=== PATIENT | female | born 1930 | race Caucasian/White ===

== ENCOUNTER 2016-11-12 09:15 | Emergency (ER) | payer MEDICARE, OTHER ==
[2016-11-12] MEDS ORDERED: 0.9 % SODIUM CHLORIDE 500 ML IV ONE (09:30)
[2016-11-12 09:38] LABS: BASOPHILS % 0.3 (0.0-1.5); EOSINOPHILS % 5.5 % (0.0-6.8); LYMPHOCYTES # 1.9 # k/uL (0.6-4.0); MEAN CORPUSCULAR HEMOGLOBIN 29.8 pg (28.0-34.0); MONOCYTES # 0.3 # k/uL (0.0-0.9); MONOCYTES % 3.7 % (0.0-11.0); NEUTROPHILS # 4.6 # k/uL (1.4-7.7)
[2016-11-12 09:39] LABS: APPEARANCE,URINE Clear (CLEAR); COLOR,URINE Yellow (YELLOW); OCCULT BLOOD,URINE Negative (NEGATIVE); UROBILINOGEN URINE 0.2 Eu (0.2-1.0)
--- NOTE | 2016-11-12 09:39 | ED Physician Documentation ---
General Adult - HISTORIAN Historian: patient, paramedics - HPI Stated Complaint: confusion Chief Complaint: General Adult Onset: hours Timing: still present Severity: moderate Further Comments: yes (Pt is an 85 yo female with dementia, who was difficult for her family to awaken this am. Pt was alert when EMT's arrived and walked to ambulance. In ER family stated that pt was near her baseline mental status, but seemed a little slower than usual.) - ROS CONST: other (pt with dementia cannot give reliable ROS) - PAST HX Past History: other (depression, dementia) Surgeries/Procedures: cholecystectomy Allergies/Adverse Reactions: Allergies Allergy/AdvReac Type Severity Reaction Status Date / Time cefaclor [From Ceclor] Allergy Unknown Verified 11/12/16 09:54 cephalexin [Cephalexin] Allergy Unknown Verified 11/12/16 09:54 Home Medications: Ambulatory Orders Medication Instructions Recorded Quetiapine Fumarate [Seroquel] 25 mg PO BID u2 11/19/14 Sertraline HCl [Zoloft] 25 mg PO DAILY u2 01/09/16 Dextromethorphan HBr/Quinidine 1 each PO BID 11/12/16 [Nuedexta] - SOCIAL HX Smoking History: quit greater than 1 year - FAMILY HX Family History: No - REVIEWED ASSESSMENTS Nursing Assessment Reviewed: Yes Vitals Reviewed: Yes Progress - Progress Progress: 1 L NS pt's mental status at or near baseline per family probable slow mental status decline c/w dementia, labs wnl. ED Results Lab/Radiology - Orders Orders: ED Orders Category Date Time Status Place Saline Lock/IV Now Care 11/12/16 09:30 Active BNP [NT-proBNP] Stat Lab 11/12/16 09:30 Received CBC/PLATELET/DIFF Routine Lab 11/12/16 09:30 Received CMP Routine Lab 11/12/16 09:30 Received URINALYSIS Routine Lab 11/12/16 09:30 Received 0.9 % Sodium Chloride [Normal Saline] 500 ml Med 11/12/16 09:30 Active IV NOW General Adult Physical Exam - PHYSICAL EXAM GENERAL APPEARANCE: mild distress EENT: eye inspection normal, pharynx normal NECK: normal inspection, supple RESPIRATORY: no resp distress, chest non-tender, breath sounds normal CVS: reg rate & rhythm, heart sounds normal ABDOMEN: soft, no organomegaly, normal bowel sounds BACK: normal inspection, no CVA tenderness SKIN: warm/dry, normal color EXTREMITIES: non-tender, normal range of motion NEURO: motor nml, sensation nml, disoriented (hx dementia) Discharge Clincal Impression: Transient change in mental status Referrals: Lobo Bhatt MD [Primary Care Provider] - Home Medications: Ambulatory Orders Quetiapine Fumarate [Seroquel] 25 mg PO BID u2 11/19/14 Sertraline HCl [Zoloft] 25 mg PO DAILY u2 01/09/16 Dextromethorphan HBr/Quinidine [Nuedexta] 1 each PO BID 11/12/16 Condition: Stable Disposition: 01 HOME, SELF-CARE Decision to Admit: NO Decision Time: 11:21
[2016-11-12 10:02] LABS: eGFR (African) > 60; eGFR (Non-African) > 60
[2016-11-12 11:36] VITALS: BP 121/63
== END 2016-11-12 11:23 | disposition home or self-care (01) ==
LOC: ED 09:15
DX: R40.4 Transient alteration of awareness (principal)
CPT/HCPCS: 80053; 81002; 83880; 85025; J7060; 51701; 99283

== ENCOUNTER 2017-02-28 20:04 | Emergency (ER) | payer MEDICARE, OTHER ==
--- NOTE | 2017-02-28 20:53 | ED Physician Documentation ---
Facial/Scalp Injury - HISTORIAN Historian: patient (poor historian 2/2 medical condition), child (daughter) - HPI Stated Complaint: laceration face Chief Complaint: Facial Injury Additional Information: Fell onto face from seated position on couch at home. No LOC. Occurred 30 minutes prior to arrival. Lives with daughter. No clotting inhibitors. - ROS CONST: no problems - PAST HX Past History: other (dementia, HLD) - SOCIAL HX Smoking History: non-smoker - FAMILY HX Family History: No - VITAL SIGNS Vital Signs: Vital Signs Temp Pulse Resp BP Pulse Ox 121/63 11/12/16 11:35 - REVIEWED ASSESSMENT Nursing Assessment Reviewed: Yes Vitals Reviewed: Yes Progress - Progress Progress: Computed tomography of the head without contrast History: Fall with facial and head lacerations Findings: Transverse brain sections are obtained without contrast revealing lens replacements moderate global brain atrophy, and intact ngo white differentiation. There is no intracranial hemorrhage. Mucosal thickening and fluid are observed in ethmoid and maxillary sinuses. The skull is intact. Impression: 1. Brain atrophy without intracranial hemorrhage or skull fracture. 2. Ethmoid and maxillary sinusitis. Electronically signed on February 28, 2017 9:56:12 PM CDT by: Ezra Cui CT maxillofacial without contrast History: Left orbit and lip injury after fall Findings: Transverse mandible and facial bones sections are obtained without contrast revealing mucosal thickening in maxillary, ethmoid, and left sphenoid sinuses. Maxillary sinus fluid is observed. The mandible and facial bones are intact. Multilevel cervical spondylosis is partially visualized. Lens replacements have been performed. Minimal left preseptal periorbital contusion is present. Brain atrophy is noted. A left frontal scalp laceration and contusion are observed. Impression: 1. Facial contusions without fracture. 2. Acute and chronic sinusitis. 3. Cervical spondylosis. Electronically signed on February 28, 2017 9:58:09 PM CDT by: Ezra Cui Laceration infiltrated with 1.5 ml 0.5% bupivacaine. Pt became quite upset. Wound cleaned with chlorhexadine and saline. Closed with benzoing, steri strips. Extra steri strips sent home with daughter. ED Results Lab/Radiology - Orders Orders: ED Orders Category Date Time Status CT BRAIN W/O CONTRAST Stat Exams 02/28/[address] MAXILLOFACIAL W/O DYE Stat Exams 02/28/17 Ordered Facial Injury Physical Exam - Physical Exam General Appearance: moderate distress (angry that she has blood on her clothes and forehead and her family has "deserted" her) Head: trauma (swelling above left eyebrow with 2 cm lac, linear, sub q, no active bleeding. Bruising right malar area) Neck: non-tender, painless ROM Eye: lids nml, conjunctivae nml ENT: nml external exam, no injury to teeth, other (slight swelling left lower lip, left upper lip) Neuro/Psych: CN's nml as tested, sensation nml, motor nml Respiratory: breath sounds nml, heart sounds nml CVS: reg. rate & rhythm, heart sounds nml Skin: intact (except as above), warm Extremities: nml ROM (hips, legs) Discharge Clincal Impression: Facial laceration Referrals: Lobo Bhatt MD [Primary Care Provider] - 2 Days Home Medications: Ambulatory Orders Sertraline HCl [Zoloft] 25 mg PO DAILY u2 01/09/16 Quetiapine Fumarate 25 mg PO TID u2 01/18/17 Dextromethorphan HBr/Quinidine [Nuedexta] 1 tab PO DAILY 02/28/17 Condition: Good Disposition: 01 HOME, SELF-CARE Decision to Admit: NO Decision Time: 22:27
[2017-02-28] MEDS ORDERED: BUPIVACAINE HCL/PF 5 MG/ML 10ML VIAL IV ONE (20:59)
[2017-02-28] MEDS ORDERED: BUPIVACAINE HCL/PF 5 MG/ML 10ML VIAL IJ ONE (22:00)
[2017-02-28 22:32] VITALS: BP 122/59
--- NOTE | 2017-03-01 00:15 | Diagnostic Imaging Report ---
RACIEL DAMICO~ [facility] [address] [facility] [address] [place] [address]. [id number] ~ ~ ~ ~ Report Submission Date: February 28, 2017 9:56:12 PM CDT Patient ~ Study Name: TOSHA SAUCEDO ~ Date: February 28, 2017 9:25:51 PM CDT ~ Modality Type: CT\SR Gender: F ~ Description: CT BRAIN W/O CONTRAST : 28 ~ Institution: [facility] Physician: RACIEL DAMICO ~ ~ ~ ~ Computed tomography of the head without contrast History: Fall with facial and head lacerations Findings: Transverse brain sections are obtained without contrast revealing lens replacements moderate global brain atrophy, and intact ngo white differentiation. There is no intracranial hemorrhage. Mucosal thickening and fluid are observed in ethmoid and maxillary sinuses. The skull is intact. Impression: 1. Brain atrophy without intracranial hemorrhage or skull fracture. 2. Ethmoid and maxillary sinusitis. ~ Electronically signed on February 28, 2017 9:56:12 PM CDT by: Ezra COLLIER
--- NOTE | 2017-03-01 00:16 | Diagnostic Imaging Report ---
RACIEL DAMICO~ [facility] [address] [facility] [address] [place], [place]. [address] ~ ~ ~ ~ Report Submission Date: February 28, 2017 9:58:09 PM CDT Patient ~ Study Name: TOSHA SAUCEDO ~ Date: February 28, 2017 9:30:47 PM CDT ~ Modality Type: CT\SR Gender: F ~ Description: CT MAXILLOFACIAL W/O D : 29 ~ Institution: [facility] Physician: RACIEL DAMICO ~ ~ ~ ~ CT maxillofacial without contrast History: Left orbit and lip injury after fall Findings: Transverse mandible and facial bones sections are obtained without contrast revealing mucosal thickening in maxillary, ethmoid, and left sphenoid sinuses. Maxillary sinus fluid is observed. The mandible and facial bones are intact. Multilevel cervical spondylosis is partially visualized. Lens replacements have been performed. Minimal left preseptal periorbital contusion is present. Brain atrophy is noted. A left frontal scalp laceration and contusion are observed. Impression: 1. Facial contusions without fracture. 2. Acute and chronic sinusitis. 3. Cervical spondylosis. ~ Electronically signed on February 28, 2017 9:58:09 PM CDT by: Ezra COLLIER
== END 2017-02-28 22:30 | disposition home or self-care (01) ==
LOC: ED 20:04
DX: S01.112A Laceration without foreign body of left eyelid and periocular area, initial encounter (principal); W08.XXXA Fall from other furniture, initial encounter; Z91.81 History of falling; Y93.9 Activity, unspecified; Y99.9 Unspecified external cause status
CPT/HCPCS: 70450; 70486; J3490; 90471; 99283

== ENCOUNTER 2018-01-21 10:01 | Emergency (ER) | payer MEDICARE, OTHER ==
--- NOTE | 2018-01-21 10:19 | ED Physician Documentation ---
General Adult - HISTORIAN Historian: patient ([place]) - [facility] Chief Complaint: General Adult (possible aspiration) Additional Information: Nursing staff at [facility] concerned that the patient may have aspirated. This AM while eating patient started to have what appeared to be some SOB. States that she was crying, appeared to be in pain but could not tell them what was going on. She did have some mild coughing. VS remained stable. No previous history of aspiration or CAD. Patient transported in stable condition by EMS for evaluation. Onset: hours Timing: better Severity: moderate - ROS CONST: no problems. denies: fever, chills CVS/RESP: shortness of breath GI/: denies: vomiting, nausea, diarrhea, black stools - PAST HX Past History: other (dementia, hypercholesterolemia) Surgeries/Procedures: cholecystectomy, other (cataract extraction) Allergies/Adverse Reactions: Allergies Allergy/AdvReac Type Severity Reaction Status Date / Time cefaclor [From Ceclor] Allergy Unknown Verified 01/21/18 10:17 cephalexin [Cephalexin] Allergy Unknown Verified 01/21/18 10:17 Home Medications: Ambulatory Orders Medication Instructions Recorded Sertraline HCl [Zoloft] 25 mg PO DAILY u2 01/09/16 Dextromethorphan HBr/Quinidine 1 tab PO DAILY 02/28/17 [Nuedexta] Acetaminophen [Tylenol Extra 500 mg PO Q6 PRN 01/21/18 Strength] Ca/D3/Mag/Zinc/Johnathan/Henrique/Mgbor 1 tab PO BID 01/21/18 [Caltrate 600+D3+Min Chew Tab] Docusate Sodium [Colace] 100 mg PO DAILY 01/21/18 Ibuprofen [Advil] 400 mg PO BID 01/21/18 Polyethylene Glycol 3350 [Miralax] 17 gm PO DAILY 01/21/18 - SOCIAL HX Smoking History: non-smoker Alcohol Use: none Drug Use: none - FAMILY HX Family History: No (CAD brothers) - VITAL SIGNS Vital Signs: Vital Signs Temp Pulse Resp BP Pulse Ox 122/59 02/28/17 22:30 - REVIEWED ASSESSMENTS Nursing Assessment Reviewed: Yes Vitals Reviewed: Yes ED Results Lab/Radiology - Radiology Radiology Impressions: Examination: Portable chest History: POSSIBLE ASPIRATION (Hx) Comparison exam: None provided. Findings: Single view of the chest demonstrates a normal cardiac and mediastinal silhouette. Vascular calcifications involving the aortic arch. Lung ascencio without focal infiltrate. Flattening/blunting of the lung bases bilaterally. Articular degenerative changes. Impression: No acute appearing pulmonary process. General Adult Physical Exam - PHYSICAL EXAM GENERAL APPEARANCE: no distress (patient is resting quietly) EENT: pharynx normal NECK: normal inspection, thyroid normal, supple RESPIRATORY: no resp distress, chest non-tender, breath sounds normal. No: wheezes, rales, rhonchi CVS: reg rate & rhythm, heart sounds normal, equal pulses, no murmur, no gallop , PMI nml ABDOMEN: soft BACK: normal inspection, no CVA tenderness SKIN: warm/dry, normal color EXTREMITIES: non-tender, normal range of motion NEURO: motor nml, mood/affect nml, disoriented. No: oriented X3 (to person only ), cognition normal (confused) Discharge Clincal Impression: Chest pain Qualifiers: Chest pain type: unspecified Qualified Code(s): R07.9 - Chest pain, unspecified Referrals: Lobo Bhatt MD [Primary Care Provider] - 2 Days Additional Instructions: BUN and creatinine are elevated slightly from baseline, try to encourage fluids. Continue to monitor for aspiration. Condition: Stable Disposition: 01 HOME, SELF-CARE Decision to Admit: NO Date of Decison to Admit: 01/21/18 Decision Time: 11:47
[2018-01-21 10:23] VITALS: BP 133/53
[2018-01-21 10:34] LABS: BASOPHILS % 0.4 (0.0-1.5); EOSINOPHILS % 5.4 % (0.0-6.8); MEAN CORPUSCULAR HEMOGLOBIN 28.6 pg (28.0-34.0); MEAN CORPUSCULAR VOLUME 91.8 fl (80.0-100.0); MONOCYTES % 3.9 % (0.0-11.0); NEUTROPHILS # 4.4 # k/uL (1.4-7.7)
[2018-01-21 10:51] LABS: eGFR (Non-African) > 60
--- NOTE | 2018-01-21 17:45 | Diagnostic Imaging Report ---
HOMAR HICKMAN [facility] [address] [facility].[address] [address] Report Submission Date: Jan 21, 2018 10:55:31 AM CDT Patient Study Name: TOSHA SAUCEDO A Date: Jan 21, 2018 10:33:00 AM CDT Modality Type: DX Gender: F Description: CHEST : 28 Institution: [facility] Physician: HOMAR HICKMAN Examination: Portable chest History: POSSIBLE ASPIRATION (Hx) Comparison exam: None provided. Findings: Single view of the chest demonstrates a normal cardiac and mediastinal silhouette. Vascular calcifications involving the aortic arch. Lung ascencio without focal infiltrate. Flattening/blunting of the lung bases bilaterally. Articular degenerative changes. Impression: No acute appearing pulmonary process. Electronically signed on Jan 21, 2018 10:55:31 AM CDT by: Jason COLLIER
== END 2018-01-21 13:13 | disposition home or self-care (01) ==
LOC: ED 10:01
DX: R07.9 Chest pain, unspecified (principal)
CPT/HCPCS: 71045; 80053; 84484; 85025; 99282

== ENCOUNTER 2018-06-27 15:09 | Emergency (ER) | payer MEDICARE, OTHER ==
[2018-06-27] MEDS ORDERED: ACETAMINOPHEN 160 MG/5 ML 60ML BOTTLE PO ONE (17:26)
--- NOTE | 2018-06-27 17:34 | ED Physician Documentation ---
Fall - HISTORIAN Historian: patient - HPI Stated Complaint: Fall Chief Complaint: Fall Additional Information: demented, getting out of chair, fell, hit head on another chair Onset: just prior to arrival Where: other ([place]) Context: lost balance r: moderate Associated Symptoms:: no loss of consciousness Location of Pain/Injury: head Injury to Right Extremity: knee Injury to Left Extremity: knee Further Comments: no - ROS CONST: no problems NEURO: denies: dizziness, anxiety, depression MS/SKIN/LYMPH: leg swelling (right knee erythematous and warm, edematous). denies: weakness, numbness, neck pain EYES/ENT: none CVS/RESP: none GI/: denies: problems urinating, nausea, vomiting - PAST HX Past History: other (dementia) Immunizations: referred to PCP Allergies/Adverse Reactions: Allergies Allergy/AdvReac Type Severity Reaction Status Date / Time cefaclor [From Ceclor] Allergy Unknown Verified 06/27/18 15:21 cephalexin [Cephalexin] Allergy Unknown Verified 06/27/18 15:21 Home Medications: Ambulatory Orders Medication Instructions Recorded Sertraline HCl [Zoloft] 25 mg PO DAILY u2 01/09/16 Dextromethorphan HBr/Quinidine 1 tab PO DAILY 02/28/17 [Nuedexta] Acetaminophen [Tylenol Extra 500 mg PO Q6 PRN 01/21/18 Strength] Ca/D3/Mag/Zinc/Johnathan/Henrique/Mgbor 1 tab PO BID 01/21/18 [Caltrate 600+D3+Min Chew Tab] Docusate Sodium [Colace] 100 mg PO DAILY 01/21/18 Ibuprofen [Advil] 400 mg PO BID 01/21/18 Polyethylene Glycol 3350 [Miralax] 17 gm PO DAILY 01/21/18 - SOCIAL HX Smoking History: non-smoker Alcohol Use: none Drug Use: none - FAMILY HX Family History: no significant history - VITAL SIGNS Vital Signs: Vital Signs Temp Pulse Resp BP Pulse Ox 98.2 F 89 16 134/99 95 06/27/18 15:13 06/27/18 15:13 06/27/18 15:13 06/27/18 15:13 06/27/18 15:13 - REVIEWED ASSESSMENTS Nursing Assessment Reviewed: Yes Vitals Reviewed: Yes Progress - Results/Orders Results/Orders: ct head and c-spine, x-rays knees ordered - Progress Progress: right knee placed in knee immobilizer and pt. given 360 mg of liquid tylenol p.o. for pain Critical Care Note - Critical Care Note Total Time (mins): 0 ED Results Lab/Radiology - Lab Results Lab Results: no testing ordered - Radiology Radiology Impressions: ct head and cervical spine, x-rays bilateral knees - Orders Orders: ED Orders Category Date Time Status Knee Immobilizer 1T Care 06/27/18 17:25 Ordered BILAT KNEES 3 VIEW [RAD] Stat Exams 06/27/[address] BRAIN W/O CONTRAST Stat Exams 06/27/[address] C-SPINE W/O CONTRAST Stat Exams 06/27/18 Ordered Acetaminophen [Tylenol] Med 06/27/18 17:26 Once 640 mg PO NOW ONE Fall Physical Exam - Physical Exam General Appearance: alert, moderate distress Head: trauma (ecchymosis right periorbital area). No: Addison's sign Neck: non-tender, painless ROM, trachea midline Eye: SHABBIR, EOMI, lids & conjunct. nml ENT: nml external inspection, no dental injury, no oral injury, airway nml Resp/CVS: chest non-tender, no ecchymosis, breath sounds nml, no resp. distress, heart sounds nml. No: rib tenderness Abdomen: soft, no organomegaly, normal bowel sounds, no abdominal bruit, no distension, non-tender Neuro: CN's nml as tested, crayon sawyer nml, crayon sawyer symmetrical, unsteady gait (secondary to right knee injury) Skin: other (ecchymosis right periorbital area) Back: normal inspection, no CVA tenderness, no vertebral tenderness Extremities: other (knees reddened, right warm and edematous) Joint: painful (exam right knee at patella). No: ligaments laxity Discharge Clincal Impression: Patellar fracture Qualifiers: Encounter type: initial encounter Fracture type: closed Fracture morphology: longitudinal Fracture alignment: displaced Laterality: right Qualified Code(s): S82.021A - Displaced longitudinal fracture of right patella, initial encounter for closed fracture Referrals: Lobo Bhatt MD [Primary Care Provider] - 2 Days Comments: Discharged in stable condition with right knee immobilizer in place and Tylenol prn pain Condition: Stable Disposition: 01 HOME, SELF-CARE Decision to Admit: NO Decision Time: 17:34
[2018-06-27] MEDS ORDERED: ACETAMINOPHEN ORAL SOLUTION 325 MG/10.15 ML CUP ONE (17:37)
[2018-06-27 18:39] VITALS: BP 126/84
--- NOTE | 2018-06-27 21:55 | Diagnostic Imaging Report ---
ZAINAB EDWARDS [facility] [address] [facility] [address] [place] [address]. [address] Report Submission Date: Jun 27, 2018 4:28:37 PM CDT Patient Study Name: TOSHA SAUCEDO Date: Jun 27, 2018 3:44:00 PM CDT Modality Type: CT Gender: F Description: CT BRAIN W/O CONTRAST : 29 Institution: [facility] Physician: ZAINAB EDWARDS Head CT without contrast History: Status post fall with head injury Technique: Axial images were obtained from the skullbase to the vertex without IV contrast. Comparison is made with February 28, 2017. There is age-related cortical volume loss. There is no positive mass effect or intra/extra-axial hemorrhage. Brain parenchyma demonstrates normal attenuation. There is mild soft tissue swelling of the right frontal scalp. Paranasal sinuses and mastoid air cells are clear. The calvarium is intact. Impression: Age-related cortical volume loss. No acute intracranial abnormality. Mild soft tissue swelling of the right frontal scalp. Electronically signed on Jun 27, 2018 4:28:37 PM CDT by: Janki COLLIER
--- NOTE | 2018-06-27 21:56 | Diagnostic Imaging Report ---
ZAINAB EDWARDS [facility] [address] [facility] [address] [place] [address]. [address] Report Submission Date: Jun 27, 2018 4:34:58 PM CDT Patient Study Name: TOSHA SAUCEDO Date: Jun 27, 2018 3:46:00 PM CDT Modality Type: CT Gender: F Description: CT C-SPINE W/O CONTRAS : 28 Institution: [facility] Physician: ZAINAB EDWARDS CT cervical spine without contrast History: Status post fall. Dementia. Technique: Helically acquired images were obtained through the cervical spine. Sagittal and coronal reconstructions were performed. Findings: The dens is intact. There is degenerative narrowing at the lateral masses of C1and 2. There is no prevertebral soft tissue swelling. There is no evidence for acute fracture or dislocation. There is multilevel facet arthropathy. As a result, there is slight anterolisthesis of C5 relative to C6 and of C6 relative to C7. There is [id number] disc space narrowing at C6/7. Vertebral body height is maintained. Spinous processes are intact. No significant foraminal narrowing is appreciated. No central stenosis is appreciated. Lung apices are clear. Impression: Degenerative findings of the cervical spine as described. No evidence for acute fracture. Electronically signed on Jun 27, 2018 4:34:58 PM CDT by: Janki COLLIER
--- NOTE | 2018-06-27 21:56 | Diagnostic Imaging Report ---
ZAINAB EDWARDS [facility] [address] [facility] [address] [address] Report Submission Date: Jun 27, 2018 4:46:24 PM CDT Patient Study Name: TOSHA SAUCEDO Date: Jun 27, 2018 3:49:00 PM CDT Modality Type: DX Gender: F Description: LOWER EXTREMITY : 28 Institution: [facility] Physician: ZAINAB EDWARDS Bilateral three view knees History: Knee pain Findings: Three views of each knee are obtained revealing patchy osteopenia. A sagittally oriented fracture is observed through the lateral 3rd of the right patella. This less likely represents a bipartite patella. A small right suprapatellar joint effusion is observed. The left knee is intact without fracture, dislocation, or arthropathy. Impression: 1. Minimally distracted right lateral patellar fracture. This less likely represents a bipartite patella. Consider CT follow-up if clinical findings are equivocal. 2. Small right knee joint effusion. 3. Intact left knee. Electronically signed on Jun 27, 2018 4:46:24 PM CDT by: Ezra COLLIER
== END 2018-06-27 18:36 | disposition home or self-care (01) ==
LOC: ED 15:09
DX: S82.021A Displaced longitudinal fracture of right patella, initial encounter for closed fracture (principal); R26.9 Unspecified abnormalities of gait and mobility; W19.XXXA Unspecified fall, initial encounter; S09.90XA Unspecified injury of head, initial encounter; Y92.9 Unspecified place or not applicable; Y93.9 Activity, unspecified; Y99.9 Unspecified external cause status
CPT/HCPCS: 70450; 72125; 99284

== ENCOUNTER 2019-04-01 18:25 | Outpatient (CLI) | payer MEDICARE ==
[2019-04-13 13:14] LABS: eGFR (Non-African) > 60
[2019-04-13 13:15] LABS: APPEARANCE,URINE CLEAR (CLEAR); BASOPHILS % 0.4 % (0.0-1.5); COLOR,URINE YELLOW (YELLOW); NEUTROPHILS # 3.6 # k/uL (1.4-7.7); OCCULT BLOOD,URINE TRACE-INTACT (NEGATIVE); UROBILINOGEN URINE 0.2 Eu (0.2-1.0)
== END 2019-04-01 18:26 ==
LOC: LAB 18:25
PROVIDERS: ATTEND Family Medicine
DX: R07.9 Chest pain, unspecified (principal); N39.0 Urinary tract infection, site not specified
CPT/HCPCS: 80053; 81002; 85025; 87086

== ENCOUNTER 2019-07-09 19:58 | Outpatient (CLI) | payer MEDICARE ==
[2019-07-10 07:10] LABS: eGFR (Non-African) > 60
[2019-07-10 07:11] LABS: BASOPHILS % 0.3 % (0.0-1.5); NEUTROPHILS # 3.7 # k/uL (1.4-7.7)
== END 2019-07-09 20:00 ==
LOC: LAB 19:58
PROVIDERS: ATTEND Family Medicine
DX: J18.9 Pneumonia, unspecified organism (principal); R09.89 Other specified symptoms and signs involving the circulatory and respiratory systems
CPT/HCPCS: 80053; 85025

== ENCOUNTER 2019-07-21 08:00 | Outpatient (CLI) | payer MEDICARE, OTHER | END 2019-07-21 08:15 | LOC: LAB 08:00 | PROVIDERS: ATTEND Family Medicine | DX: F03.90 Unspecified dementia, unspecified severity, without behavioral disturbance, psychotic disturbance, mood disturbance, and anxiety (principal); N39.0 Urinary tract infection, site not specified; R45.1 Restlessness and agitation | CPT/HCPCS: 81002; 87086 ==

== ENCOUNTER 2019-07-24 08:00 | Outpatient (CLI) | payer MEDICARE | END 2019-07-24 08:10 | LOC: LAB 08:00 | PROVIDERS: ATTEND Family Medicine | DX: F03.90 Unspecified dementia, unspecified severity, without behavioral disturbance, psychotic disturbance, mood disturbance, and anxiety (principal); N39.0 Urinary tract infection, site not specified; R45.1 Restlessness and agitation ==